=== PATIENT | male | born 1935 | race Hispanic/Latino ===

== ENCOUNTER → 2020-05-12 | Day surgery (SDC) | payer MEDICARE ==
[2020-05-10 15:43] LABS: BASOPHILS % 0.6 % (0.0-1.0); EOSINOPHILS # (AUTO) 0.1 (0.0-0.4); EOSINOPHILS % 2.4 % (0.0-6.0); HEMATOCRIT 42.6 % (38.2-49.6); HEMOGLOBIN 13.7 g/dL (14.0-18.0); LYMPHOCYTES # (AUTO) 1.1 (1.0-3.2); LYMPHOCYTES % 21.2 % (18.0-39.1); MEAN CORPUSCULAR HEMOGLOBIN 31.3 pg (28-32); MEAN CORPUSCULAR HGB CONC 32.2 g/dL (31-35); MEAN CORPUSCULAR VOLUME 97.3 fL (81-99); MONOCYTES # (AUTO) 0.5 (0.2-0.8); MONOCYTES % 9.1 % (4.4-11.3); NEUTROPHILS # (AUTO) 3.6 (2.1-6.9); NEUTROPHILS % 66.3 % (38.7-80.0); PLATELET COUNT 125 x10e3/uL (140-360); RED BLOOD COUNT 4.38 x10e6/uL (4.3-5.7); RED CELL DISTRIBUTION WIDTH 12.9 % (11.7-14.4)
[2020-05-10 15:53] LABS: ANION GAP 14.7 mmol/L (8-16); BLOOD UREA NITROGEN 14 mg/dL (7-26); BUN/CREATININE RATIO 15 (6-25); CALCIUM 8.7 mg/dL (8.4-10.2); CARBON DIOXIDE 28 mmol/L (22-29); CHLORIDE 102 mmol/L (98-107); CREATININE, SERUM 0.93 mg/dL (0.72-1.25); EST GLOMERULAR FILTRATION RATE > 60 ML/MIN (60-); GLUCOSE 127 mg/dL (74-118); POTASSIUM 3.7 mmol/L (3.5-5.1); SODIUM 141 mmol/L (136-145)
[~2020-05-12] MED LIST: AMLODIPINE BESY10 MG PO; B&O 60MG R/S 60 MG SUPP PR ONE; CEFTRIAXONE SOD 1 GM/NS 50 ML 50 ML IV ONE; CRESTOR10 MG PO; DEXAMETHASONE SOD PHOS INJ 4 MG/ML VIAL ONE; FINASTERIDE5 MG PO; IOPAMIDOL 300MG/ML 50ML INFUS..BTL IV ONE; LIDOCAINE HCL 2% JELLY 5 ML TUBE ONE; LIDOCAINE HCL 2% LOCAL INJ 5 ML SDV VIAL INJ ONE; ONDANSETRON HCL INJ 2MG/ML 2ML 2 MG/ML VIAL ONE; OXYBUTYNIN CHLOR5 M1 PO; PROPOFOL IV EMULSION 10 MG/ML 20 ML VIAL ONE; SEVOFLURANE INHAL SOLN 250 ML PEN BTL ONE; SODIUM CHLORIDE 0.45% 1,000 ML ONE
[2020-05-12 09:30] VITALS: BP 140/68
== END | disposition home or self-care (01) ==
LOC: OR 05:53
PROVIDERS: ATTEND Urology
DX: C67.2 Malignant neoplasm of lateral wall of bladder (principal); N39.0 Urinary tract infection, site not specified; N40.1 Benign prostatic hyperplasia with lower urinary tract symptoms; N13.8 Other obstructive and reflux uropathy; N32.89 Other specified disorders of bladder; N32.81 Overactive bladder; M06.9 Rheumatoid arthritis, unspecified; M19.012 Primary osteoarthritis, left shoulder; I10 Essential (primary) hypertension; E78.00 Pure hypercholesterolemia, unspecified; I49.3 Ventricular premature depolarization; I45.10 Unspecified right bundle-branch block; Z98.890 Other specified postprocedural states; Z01.810 Encounter for preprocedural cardiovascular examination; Z01.812 Encounter for preprocedural laboratory examination; Z01.818 Encounter for other preprocedural examination; Z20.822 Contact with and (suspected) exposure to COVID-19; Z87.891 Personal history of nicotine dependence
CPT/HCPCS: 36415; 52005; 52235; 71046; 74420; 80048; 85025; 88307; 93005; C1758; J0696; J1100; J2001 ×2; J2405; J2704; Q9967; U0002; 88305

== ENCOUNTER → 2020-07-21 | Day surgery (SDC) | payer MEDICARE ==
[2020-07-07 09:38] LABS: BASOPHILS % 0.6 % (0.0-1.0); EOSINOPHILS # (AUTO) 0.1 (0.0-0.4); EOSINOPHILS % 2.4 % (0.0-6.0); LYMPHOCYTES # (AUTO) 0.9 (1.0-3.2); LYMPHOCYTES % 16.8 % (18.0-39.1); MEAN CORPUSCULAR HEMOGLOBIN 31.3 pg (28-32); MEAN CORPUSCULAR HGB CONC 31.7 g/dL (31-35); MEAN CORPUSCULAR VOLUME 98.6 fL (81-99); MONOCYTES # (AUTO) 0.4 (0.2-0.8); MONOCYTES % 8.1 % (4.4-11.3); NEUTROPHILS # (AUTO) 3.9 (2.1-6.9); NEUTROPHILS % 71.7 % (38.7-80.0); PLATELET COUNT 125 x10e3/uL (140-360); RED BLOOD COUNT 4.16 x10e6/uL (4.3-5.7); RED CELL DISTRIBUTION WIDTH 13.8 % (11.7-14.4)
[2020-07-07 10:09] LABS: ALANINE AMINOTRANSFERASE 15 IU/L (0-55); ALBUMIN 3.5 g/dL (3.5-5.0); ALBUMIN/GLOBULIN RATIO 0.9 (0.8-2.0); ALKALINE PHOSPHATASE 78 IU/L (40-150); BLOOD UREA NITROGEN 11 mg/dL (7-26); BUN/CREATININE RATIO 11 (6-25); CALCIUM 8.7 mg/dL (8.4-10.2); CARBON DIOXIDE 30 mmol/L (22-29); CHLORIDE 103 mmol/L (98-107); CREATININE, SERUM 0.97 mg/dL (0.72-1.25); EST GLOMERULAR FILTRATION RATE > 60 ML/MIN (60-); GLUCOSE 99 mg/dL (74-118); SODIUM 142 mmol/L (136-145)
[~2020-07-21] MED LIST changes: +CEFTRIAXONE SOD 1 GM VIAL ONE; -CEFTRIAXONE SOD 1 GM/NS 50 ML 50 ML IV ONE; +COLACE100 MG PO; -LIDOCAINE HCL 2% JELLY 5 ML TUBE ONE; +MIRALAX17 GM PO; -SODIUM CHLORIDE 0.45% 1,000 ML ONE; +SODIUM CHLORIDE 0.9% 50ML 50 ML ONE
[2020-07-21 11:20] VITALS: BP 143/72
== END | disposition home or self-care (01) ==
LOC: OR 07:33
PROVIDERS: ATTEND Urology
DX: C67.9 Malignant neoplasm of bladder, unspecified (principal); D30.3 Benign neoplasm of bladder; N39.0 Urinary tract infection, site not specified; N32.89 Other specified disorders of bladder; N40.0 Benign prostatic hyperplasia without lower urinary tract symptoms; N13.8 Other obstructive and reflux uropathy; I10 Essential (primary) hypertension; Z01.812 Encounter for preprocedural laboratory examination; Z20.822 Contact with and (suspected) exposure to COVID-19; Z98.890 Other specified postprocedural states
CPT/HCPCS: 36415; 52005; 52234; 74420; 80053; 85025; 88305; C1758; J0696; Q9967; U0002 ×2; J1100; J2001; J2405

== ENCOUNTER 2020-11-22 08:20 | Inpatient (IN) | payer MEDICARE ==
[2020-11-17 11:08] LABS: BASOPHILS % 0.7 % (0.0-1.0); EOSINOPHILS # (AUTO) 0.1 (0.0-0.4); EOSINOPHILS % 2.4 % (0.0-6.0); HEMATOCRIT 42.7 % (38.2-49.6); HEMOGLOBIN 13.8 g/dL (14.0-18.0); LYMPHOCYTES # (AUTO) 1.1 (1.0-3.2); LYMPHOCYTES % 25.6 % (18.0-39.1); MEAN CORPUSCULAR HEMOGLOBIN 31.3 pg (28-32); MEAN CORPUSCULAR HGB CONC 32.3 g/dL (31-35); MEAN CORPUSCULAR VOLUME 96.8 fL (81-99); MONOCYTES # (AUTO) 0.4 (0.2-0.8); MONOCYTES % 9.2 % (4.4-11.3); NEUTROPHILS # (AUTO) 2.6 (2.1-6.9); NEUTROPHILS % 61.9 % (38.7-80.0); PLATELET COUNT 98 x10e3/uL (140-360); RED BLOOD COUNT 4.41 x10e6/uL (4.3-5.7)
[~2020-11-22] VITALS: Ht 170.2 cm; Wt 72.1 kg
[~2020-11-22 08:20] MED LIST changes: -B&O 60MG R/S 60 MG SUPP PR ONE; +BELLADONNA/OPIUM 30 MG SUPP RC ONE; -CEFTRIAXONE SOD 1 GM VIAL ONE; -DEXAMETHASONE SOD PHOS INJ 4 MG/ML VIAL ONE; -LIDOCAINE HCL 2% LOCAL INJ 5 ML SDV VIAL INJ ONE; -ONDANSETRON HCL INJ 2MG/ML 2ML 2 MG/ML VIAL ONE; -PROPOFOL IV EMULSION 10 MG/ML 20 ML VIAL ONE; -SEVOFLURANE INHAL SOLN 250 ML PEN BTL ONE; -SODIUM CHLORIDE 0.9% 50ML 50 ML ONE
[2020-11-22] MEDS ORDERED: SODIUM CHLORIDE 0.9% 50ML 50 ML ONE (09:23)
[2020-11-22] MEDS ORDERED: CEFTRIAXONE 1 GM VIAL ONE (09:23)
[2020-11-22] MEDS ORDERED: SODIUM CHLORIDE 0.9% 1000ML 1,000 ML ONE (09:23)
[2020-11-22] MEDS ORDERED: GENTAMICIN 80MG/NS 100 ML 200 ML IV ONE (09:23)
[2020-11-22] MEDS ORDERED: FENTANYL CITRATE/PF 100MCG/2 ML INJ ONE ×2 (12:15→13:14)
[2020-11-22] MEDS ORDERED: B&O 60MG R/S 60 MG SUPP PR PRN (12:45)
[2020-11-22] MEDS ORDERED: ONDANSETRON HCL INJ 2MG/ML 2ML 2 MG/ML VIAL IV PRN (12:45)
[2020-11-22] MEDS ORDERED: ACETAMINOPHEN/CODEINE 300MG - 30MG TAB PO PRN (12:45)
[2020-11-22] MEDS ORDERED: DIPHENHYDRAMINE HCL 25 MG CAP PO PRN (12:45)
[2020-11-22] MEDS ORDERED: MORPHINE SULFATE INJ 4 MG/ML INJ 1ML ONE (13:08)
[2020-11-22] MEDS ORDERED: POVIDONE IODINE 0.05% 0.05 % ML PO ONE (13:16)
[2020-11-22] MEDS ORDERED: LIDOCAINE HCL 2% LOCAL INJ 5 ML SDV VIAL INJ ONE (13:16)
[2020-11-22] MEDS ORDERED: ONDANSETRON HCL INJ 2MG/ML 2ML 2 MG/ML VIAL ONE (13:16)
[2020-11-22] MEDS ORDERED: DEXAMETHASONE SOD PHOS INJ 4 MG/ML VIAL ONE (13:16)
[2020-11-22] MEDS ORDERED: PROPOFOL IV EMULSION 10 MG/ML 20 ML VIAL ONE (13:16)
[2020-11-22] MEDS ORDERED: GLYCOPYRROLATE INJ 0.2 MG/ML VIAL ONE (13:16)
[2020-11-22 13:19] LABS: BASOPHILS % 0.5 % (0.0-1.0); EOSINOPHILS # (AUTO) 0.1 (0.0-0.4); EOSINOPHILS % 1.8 % (0.0-6.0); HEMATOCRIT 45.1 % (38.2-49.6); HEMOGLOBIN 14.3 g/dL (14.0-18.0); LYMPHOCYTES # (AUTO) 1.3 (1.0-3.2); LYMPHOCYTES % 28.4 % (18.0-39.1); MEAN CORPUSCULAR HEMOGLOBIN 31.6 pg (28-32); MEAN CORPUSCULAR HGB CONC 31.7 g/dL (31-35); MEAN CORPUSCULAR VOLUME 99.6 fL (81-99); MONOCYTES # (AUTO) 0.3 (0.2-0.8); MONOCYTES % 6.3 % (4.4-11.3); NEUTROPHILS # (AUTO) 2.8 (2.1-6.9); NEUTROPHILS % 62.3 % (38.7-80.0); PLATELET COUNT 79 x10e3/uL (140-360); RED BLOOD COUNT 4.53 x10e6/uL (4.3-5.7); RED CELL DISTRIBUTION WIDTH 13.8 % (11.7-14.4)
[2020-11-22 13:38] LABS: ANION GAP 12.9 mmol/L (8-16); CALCIUM 8.2 mg/dL (8.4-10.2); CREATININE, SERUM 0.84 mg/dL (0.72-1.25); POTASSIUM 3.9 mmol/L (3.5-5.1)
[2020-11-22 14:30] VITALS: BP 145/81
[2020-11-22 16:10] VITALS: BP 142/70
[2020-11-22] MEDS: D5.45%NS/KCL 20MEQ 1,000 ML IV SCH ×2 (16:23→22:43)
[2020-11-22] MEDS: DOCUSATE SODIUM 100 MG CAP PO SCH (16:40)
[2020-11-22 20:00] VITALS: BP 117/66
[2020-11-23] VITALS (8 sets, daily range): BP systolic 102–115; BP diastolic 55–66
[2020-11-23 05:04] LABS: BASOPHILS % 0.3 % (0.0-1.0); EOSINOPHILS % 0.3 % (0.0-6.0); HEMATOCRIT 40.8 % (38.2-49.6); HEMOGLOBIN 13.4 g/dL (14.0-18.0); LYMPHOCYTES # (AUTO) 0.9 (1.0-3.2); LYMPHOCYTES % 12.4 % (18.0-39.1); MEAN CORPUSCULAR HGB CONC 32.8 g/dL (31-35); MEAN CORPUSCULAR VOLUME 97.4 fL (81-99); MONOCYTES # (AUTO) 0.8 (0.2-0.8); MONOCYTES % 10.6 % (4.4-11.3); NEUTROPHILS # (AUTO) 5.4 (2.1-6.9); PLATELET COUNT 96 x10e3/uL (140-360); RED BLOOD COUNT 4.19 x10e6/uL (4.3-5.7); RED CELL DISTRIBUTION WIDTH 13.9 % (11.7-14.4)
[2020-11-23 05:22] LABS: ANION GAP 10.4 mmol/L (8-16); CALCIUM 7.8 mg/dL (8.4-10.2); CREATININE, SERUM 0.83 mg/dL (0.72-1.25); POTASSIUM 4.4 mmol/L (3.5-5.1)
[2020-11-23] MEDS: CEFTRIAXONE 1 GM in SODIUM CHLORIDE 0.9% 50ML 50 ML IV SCH (09:51)
[2020-11-23] MEDS: AMLODIPINE BESYLATE 10 MG TAB PO SCH (09:51)
[2020-11-23] MEDS: DOCUSATE SODIUM 100 MG CAP PO SCH ×2 (09:51→16:57)
[2020-11-23] MEDS: SIMVASTATIN 20 MG TAB PO SCH (09:53)
[2020-11-23] MEDS: FINASTERIDE 5 MG TAB PO SCH (09:53)
[2020-11-23] MEDS: D5.45%NS/KCL 20MEQ 1,000 ML IV SCH (16:23)
[2020-11-23] MEDS: PHENAZOPYRIDINE HCL 100 MG TAB PO PRN (20:45)
[2020-11-24] VITALS: BP 128/56
[2020-11-24] MEDS: D5.45%NS/KCL 20MEQ 1,000 ML IV SCH (02:15)
[2020-11-24 04:00] VITALS: BP 116/61
[2020-11-24 05:56] LABS: BASOPHILS % 0.3 % (0.0-1.0); EOSINOPHILS # (AUTO) 0.1 (0.0-0.4); EOSINOPHILS % 1.4 % (0.0-6.0); HEMATOCRIT 40.3 % (38.2-49.6); HEMOGLOBIN 13.1 g/dL (14.0-18.0); LYMPHOCYTES # (AUTO) 0.9 (1.0-3.2); LYMPHOCYTES % 15.7 % (18.0-39.1); MEAN CORPUSCULAR HEMOGLOBIN 31.6 pg (28-32); MEAN CORPUSCULAR HGB CONC 32.5 g/dL (31-35); MEAN CORPUSCULAR VOLUME 97.3 fL (81-99); MONOCYTES # (AUTO) 0.6 (0.2-0.8); MONOCYTES % 10.6 % (4.4-11.3); NEUTROPHILS # (AUTO) 4.1 (2.1-6.9); NEUTROPHILS % 71.5 % (38.7-80.0); PLATELET COUNT 81 x10e3/uL (140-360); RED BLOOD COUNT 4.14 x10e6/uL (4.3-5.7); RED CELL DISTRIBUTION WIDTH 14.1 % (11.7-14.4)
[2020-11-24 06:37] LABS: ANION GAP 9.1 mmol/L (8-16); CREATININE, SERUM 0.79 mg/dL (0.72-1.25); POTASSIUM 4.1 mmol/L (3.5-5.1)
[2020-11-24] MEDS: PHENAZOPYRIDINE HCL 100 MG TAB PO PRN (07:44)
[2020-11-24 08:05] VITALS: BP 104/59
[2020-11-24 08:34] VITALS: BP 104/59
[2020-11-24] MEDS: AMLODIPINE BESYLATE 10 MG TAB PO SCH (09:00)
[2020-11-24] MEDS: CEFTRIAXONE 1 GM in SODIUM CHLORIDE 0.9% 50ML 50 ML IV SCH (09:19)
[2020-11-24] MEDS: DOCUSATE SODIUM 100 MG CAP PO SCH (09:19)
[2020-11-24] MEDS: FINASTERIDE 5 MG TAB PO SCH (09:20)
[2020-11-24] MEDS: SIMVASTATIN 20 MG TAB PO SCH (09:20)
[2020-11-24 11:28] VITALS: BP 106/58
[2020-11-24] MEDS ORDERED: LEVOFLOXACIN250 MG PO (14:50)
[2020-11-24 15:29] VITALS: BP 131/64
[2020-11-24] MEDS ORDERED: ONDANSETRON HCL 4 MG ORAL DISINTEGRATING TAB PO PRN (15:30)
== END 2020-11-24 15:55 | disposition home or self-care (01) | DRG 713 ==
LOC: OR 08:20 → PACU V 12:39 → MED/SURG 14:03
PROVIDERS: ADMIT Internal Medicine; ATTEND Internal Medicine
PROC: BT141ZZ Fluoroscopy of Kidneys, Ureters and Bladder using Low Osmolar Contrast (ICD-10-PCS; 2020-11-22)
PROC: 0T788ZZ Dilation of Bilateral Ureters, Via Natural or Artificial Opening Endoscopic (ICD-10-PCS; principal; 2020-11-22 10:00)
PROC: 0VB08ZZ Excision of Prostate, Via Natural or Artificial Opening Endoscopic (ICD-10-PCS; 2020-11-22 10:00)
DX: N40.1 Benign prostatic hyperplasia with lower urinary tract symptoms (principal); N13.8 Other obstructive and reflux uropathy; D69.6 Thrombocytopenia, unspecified; E78.5 Hyperlipidemia, unspecified; Z85.51 Personal history of malignant neoplasm of bladder; N32.81 Overactive bladder; K59.00 Constipation, unspecified; Z87.891 Personal history of nicotine dependence; E78.00 Pure hypercholesterolemia, unspecified
CPT/HCPCS: 36415; 74420; 80048; 83735; 85025; 93005; C1758; J0696; J1100; J1580; J2001; J2270; J2405; J3010; J7030; U0002

== ENCOUNTER → 2021-10-23 | Outpatient (CLI) | payer MEDICARE ==
[~2021-10-23] MED LIST changes: -BELLADONNA/OPIUM 30 MG SUPP RC ONE; -IOPAMIDOL 300MG/ML 50ML INFUS..BTL IV ONE; +LEVOFLOXACIN250 MG PO
== END ==
LOC: DX 09:29
PROVIDERS: ATTEND Surgery
DX: Z93.3 Colostomy status (principal)
CPT/HCPCS: 74280

== ENCOUNTER → 2021-11-16 | Outpatient (CLI) | payer MEDICARE ==
[~2021-11-16] MED LIST changes: +DIATRIZOATE MEGL/DIATRIZOA SOD 30 ML BTL PO ONE; +IOPAMIDOL 370 MG/ML 100 ML INFUS..BTL INJ ONE
[2021-11-16 14:33] LABS: CREATININE, SERUM 1.14 mg/dL (0.72-1.25)
== END ==
LOC: CT 13:40
PROVIDERS: ATTEND Surgery
DX: Z85.038 Personal history of other malignant neoplasm of large intestine (principal); N32.9 Bladder disorder, unspecified; N40.0 Benign prostatic hyperplasia without lower urinary tract symptoms
CPT/HCPCS: 36415; 74177; 82565; 84520; Q9963; Q9967

== ENCOUNTER → 2022-02-01 | Day surgery (SDC) | payer MEDICARE ==
[2022-01-30 14:24] LABS: BASOPHILS % 0.5 % (0.0-1.0); EOSINOPHILS # (AUTO) 0.1 (0.0-0.4); EOSINOPHILS % 2.5 % (0.0-6.0); HEMATOCRIT 41.4 % (38.2-49.6); HEMOGLOBIN 13.3 g/dL (14.0-18.0); LYMPHOCYTES # (AUTO) 0.9 (1.0-3.2); LYMPHOCYTES % 22.4 % (18.0-39.1); MEAN CORPUSCULAR HEMOGLOBIN 32.7 pg (28-32); MEAN CORPUSCULAR HGB CONC 32.1 g/dL (31-35); MEAN CORPUSCULAR VOLUME 101.7 fL (81-99); MONOCYTES # (AUTO) 0.4 (0.2-0.8); MONOCYTES % 9.5 % (4.4-11.3); NEUTROPHILS # (AUTO) 2.6 (2.1-6.9); NEUTROPHILS % 64.9 % (38.7-80.0); PLATELET COUNT 87 x10e3/uL (140-360); RED BLOOD COUNT 4.07 x10e6/uL (4.3-5.7); RED CELL DISTRIBUTION WIDTH 12.7 % (11.7-14.4)
[2022-01-30 14:44] LABS: ALBUMIN 4.1 g/dL (3.5-5.0); ALBUMIN/GLOBULIN RATIO 1.2 (0.8-2.0); ANION GAP 11.9 mmol/L (8-16); CREATININE, SERUM 0.91 mg/dL (0.72-1.25); POTASSIUM 3.9 mmol/L (3.5-5.1)
[~2022-02-01] MED LIST changes: +BELLADONNA/OPIUM 30 MG SUPP RC ONE; +CEFTRIAXONE 1 GM VIAL ONE; +DEXAMETHASONE SOD PHOS INJ 4 MG/ML SDV IV ONE; -DIATRIZOATE MEGL/DIATRIZOA SOD 30 ML BTL PO ONE; +EPHEDRINE SULFATE INJ 50 MG/ML VIAL IV ONE; -IOPAMIDOL 370 MG/ML 100 ML INFUS..BTL INJ ONE; +IOPAMIDOL 610MG/1ML 300 MG/ML VIAL IV ONE; +LIDOCAINE HCL 2% LOCAL INJ 5 ML SDV VIAL INJ ONE; +METOPROLOL SUCC25 MG PO; +MIDAZOLAM HCL 2 MG/2 ML VIAL ONE; +ONDANSETRON HCL INJ 2MG/ML 2ML 2 MG/ML VIAL IV ONE; +POVIDONE IODINE 0.05% 0.05 % ML PO ONE; +PROPOFOL IV EMULSION 10 MG/ML 20 ML VIAL IV ONE; +SODIUM CHLORIDE 0.9% 1000ML 1,000 ML ONE
[2022-02-01 14:00] VITALS: BP 120/75
== END | disposition home or self-care (01) ==
LOC: OR 09:06
PROVIDERS: ATTEND Urology
DX: C67.1 Malignant neoplasm of dome of bladder (principal); N39.0 Urinary tract infection, site not specified; N35.912 Unspecified bulbous urethral stricture, male; N40.0 Benign prostatic hyperplasia without lower urinary tract symptoms; C18.9 Malignant neoplasm of colon, unspecified; I11.0 Hypertensive heart disease with heart failure; I50.30 Unspecified diastolic (congestive) heart failure; I45.10 Unspecified right bundle-branch block; E78.5 Hyperlipidemia, unspecified; R00.1 Bradycardia, unspecified; Z01.810 Encounter for preprocedural cardiovascular examination; Z01.812 Encounter for preprocedural laboratory examination; Z01.818 Encounter for other preprocedural examination; Z79.899 Other long term (current) drug therapy; Z87.891 Personal history of nicotine dependence
CPT/HCPCS: 36415; 52005; 52235; 71046; 74420; 80053; 85025; 88307; 93005; C1758; J0696; J1100; J2001; J2250; J2405; J2704; J7030; Q9967; 88304

== ENCOUNTER → 2022-04-19 | Day surgery (SDC) | payer MEDICARE ==
[2022-04-17 13:18] LABS: BASOPHILS % 0.8 % (0.0-1.0); EOSINOPHILS # (AUTO) 0.1 (0.0-0.4); EOSINOPHILS % 2.7 % (0.0-6.0); HEMATOCRIT 44.7 % (38.2-49.6); HEMOGLOBIN 13.9 g/dL (14.0-18.0); LYMPHOCYTES % 25.7 % (18.0-39.1); MEAN CORPUSCULAR HEMOGLOBIN 32.3 pg (28-32); MEAN CORPUSCULAR HGB CONC 31.1 g/dL (31-35); MONOCYTES # (AUTO) 0.4 (0.2-0.8); MONOCYTES % 10.6 % (4.4-11.3); NEUTROPHILS # (AUTO) 2.3 (2.1-6.9); NEUTROPHILS % 59.9 % (38.7-80.0); PLATELET COUNT 95 x10e3/uL (140-360); RED CELL DISTRIBUTION WIDTH 12.8 % (11.7-14.4)
[2022-04-17 13:36] LABS: ALBUMIN 4.3 g/dL (3.5-5.0); ALBUMIN/GLOBULIN RATIO 1.2 (0.8-2.0); ANION GAP 14.6 mmol/L (8-16); CALCIUM 9.2 mg/dL (8.4-10.2); CREATININE, SERUM 1.01 mg/dL (0.72-1.25); POTASSIUM 4.6 mmol/L (3.5-5.1)
[~2022-04-19] MED LIST changes: -BELLADONNA/OPIUM 30 MG SUPP RC ONE; -DEXAMETHASONE SOD PHOS INJ 4 MG/ML SDV IV ONE; -EPHEDRINE SULFATE INJ 50 MG/ML VIAL IV ONE; +FENTANYL CITRATE/PF 100MCG/2 ML INJ ONE; +IOPAMIDOL 300MG/ML 50ML INFUS..BTL IV ONE; -IOPAMIDOL 610MG/1ML 300 MG/ML VIAL IV ONE; +MULTI-VITAMIN1 EAC1 PO; -ONDANSETRON HCL INJ 2MG/ML 2ML 2 MG/ML VIAL IV ONE; +PHENYLEPHRINE HCL 1% 10 MG/ML VIAL ONE; -PROPOFOL IV EMULSION 10 MG/ML 20 ML VIAL IV ONE; +PROPOFOL IV EMULSION 10 MG/ML 20 ML VIAL ONE; +SEVOFLURANE INHAL SOLN 250 ML PEN BTL ONE; +SODIUM CHLORIDE 0.9% 100 ML ONE; -SODIUM CHLORIDE 0.9% 1000ML 1,000 ML ONE
[2022-04-19 11:30] VITALS: BP 123/60
== END | disposition home or self-care (01) ==
LOC: OR 06:46
PROVIDERS: ATTEND Urology
DX: C67.9 Malignant neoplasm of bladder, unspecified (principal); N35.912 Unspecified bulbous urethral stricture, male; I10 Essential (primary) hypertension; I42.1 Obstructive hypertrophic cardiomyopathy; E78.5 Hyperlipidemia, unspecified; I45.10 Unspecified right bundle-branch block; Z01.812 Encounter for preprocedural laboratory examination; Z79.899 Other long term (current) drug therapy; Z85.038 Personal history of other malignant neoplasm of large intestine; Z98.890 Other specified postprocedural states
CPT/HCPCS: 36415; 52214; 74420; 80053; 85025; 88305; C1758; J0696; J2001; J2250; J2370; J2704; J3010; J7050; Q9967; 88304

== ENCOUNTER 2023-02-24 09:43 | Inpatient (IN) | payer MEDICARE ==
[~2023-02-24 09:43] MED LIST changes: -CEFTRIAXONE 1 GM VIAL ONE; -FENTANYL CITRATE/PF 100MCG/2 ML INJ ONE; -IOPAMIDOL 300MG/ML 50ML INFUS..BTL IV ONE; -LIDOCAINE HCL 2% LOCAL INJ 5 ML SDV VIAL INJ ONE; -MIDAZOLAM HCL 2 MG/2 ML VIAL ONE; +OXYBUTYNIN CHLOR5 MG PO; -PHENYLEPHRINE HCL 1% 10 MG/ML VIAL ONE; -POVIDONE IODINE 0.05% 0.05 % ML PO ONE; -PROPOFOL IV EMULSION 10 MG/ML 20 ML VIAL ONE; -SEVOFLURANE INHAL SOLN 250 ML PEN BTL ONE; -SODIUM CHLORIDE 0.9% 100 ML ONE
[2023-02-24] MEDS ORDERED: GENTAMICIN 80MG/NS 100 ML 200 ML IV ONE (10:35)
[2023-02-24] MEDS ORDERED: CEFTRIAXONE 1 GM VIAL ONE (10:35)
[2023-02-24] MEDS ORDERED: SODIUM CHLORIDE 0.9% 1000ML 1,000 ML ONE (10:36)
[2023-02-24 10:56] LABS: BASOPHILS % 0.5 % (0.0-1.0); EOSINOPHILS % 0.8 % (0.0-6.0); HEMATOCRIT 41.3 % (38.2-49.6); HEMOGLOBIN 13.8 g/dL (14.0-18.0); LYMPHOCYTES # (AUTO) 0.8 (1.0-3.2); LYMPHOCYTES % 20.4 % (18.0-39.1); MEAN CORPUSCULAR HEMOGLOBIN 32.7 pg (28-32); MEAN CORPUSCULAR HGB CONC 33.4 g/dL (31-35); MEAN CORPUSCULAR VOLUME 97.9 fL (81-99); MONOCYTES # (AUTO) 0.4 (0.2-0.8); MONOCYTES % 9.9 % (4.4-11.3); NEUTROPHILS # (AUTO) 2.6 (2.1-6.9); NEUTROPHILS % 68.1 % (38.7-80.0); RED BLOOD COUNT 4.22 x10e6/uL (4.3-5.7); RED CELL DISTRIBUTION WIDTH 13.1 % (11.7-14.4); WHITE BLOOD COUNT 3.83 x10e3/uL (4.8-10.8)
[2023-02-24 11:15] LABS: ALBUMIN 4.2 g/dL (3.5-5.0); ALBUMIN/GLOBULIN RATIO 1.4 (0.8-2.0); ANION GAP 12.8 mmol/L (8-16); BILIRUBIN,TOTAL 0.7 mg/dL (0.2-1.2); CALCIUM 9.1 mg/dL (8.4-10.2); CREATININE, SERUM 0.88 mg/dL (0.72-1.25); POTASSIUM 3.8 mmol/L (3.5-5.1); TOTAL PROTEIN 7.3 g/dL (6.5-8.1)
[2023-02-24 11:21] LABS: PLATELET COUNT 88 x10e3/uL (140-360)
[2023-02-24] MEDS ORDERED: IOPAMIDOL 610MG/1ML 300 MG/ML VIAL IV ONE (12:21)
[2023-02-24] MEDS ORDERED: FENTANYL CITRATE/PF 100MCG/2 ML INJ ONE (12:34)
[2023-02-24] MEDS ORDERED: ONDANSETRON HCL INJ 2MG/ML 2ML 2 MG/ML VIAL ONE (12:47)
[2023-02-24] MEDS ORDERED: PHENYLEPHRINE HCL 1% 10 MG/ML VIAL ONE (12:47)
[2023-02-24] MEDS ORDERED: PROPOFOL IV EMULSION 10 MG/ML 20 ML VIAL ONE (12:47)
[2023-02-24] MEDS ORDERED: SEVOFLURANE INHAL SOLN 250 ML PEN BTL ONE (12:47)
[2023-02-24] MEDS ORDERED: EPHEDRINE SULFATE INJ 50 MG/ML VIAL ONE (12:47)
[2023-02-24] MEDS ORDERED: DEXAMETHASONE SOD PHOS INJ 4 MG/ML SDV ONE (12:47)
[2023-02-24] MEDS ORDERED: LIDOCAINE HCL 2% LOCAL INJ 5 ML SDV VIAL INJ ONE (12:47)
[2023-02-24] MEDS ORDERED: ONDANSETRON HCL INJ 2MG/ML 2ML 2 MG/ML VIAL IV PRN (15:30)
[2023-02-24] MEDS ORDERED: ACETAMINOPHEN 1000 MG/100 ML IV PRN (15:30)
[2023-02-24] MEDS ORDERED: DIPHENHYDRAMINE HCL 25 MG CAP PO PRN (15:30)
[2023-02-24] MEDS ORDERED: PHENAZOPYRIDINE HCL 100 MG TAB PO PRN (15:30)
[2023-02-24 16:25] LABS: ANION GAP 13.5 mmol/L (8-16); CALCIUM 7.8 mg/dL (8.4-10.2); CREATININE, SERUM 0.77 mg/dL (0.72-1.25); POTASSIUM 4.5 mmol/L (3.5-5.1)
[2023-02-24 20:00] VITALS: BP 114/53; PULSE 68; RESP 18; TEMP 97.8; O2SAT 100
[2023-02-24 20:50] VITALS: PULSE 63; RESP 18; O2SAT 100
[2023-02-24 21:00] VITALS: BP 114/53; PULSE 68; RESP 18; TEMP 97.8; O2SAT 100
[2023-02-24] MEDS: SENNA-S TABLET PO SCH (21:45)
[2023-02-24] MEDS: SODIUM CHLORIDE 0.9% 1000ML 1,000 ML IV SCH (21:46)
[2023-02-24] MEDS: ACETAMINOPHEN/CODEINE 300MG - 30MG TAB PO PRN (21:51)
[2023-02-25] VITALS (9 sets, daily range): BP systolic 90–118; BP diastolic 48–62; PULSE 59–69; RESP 16–19; TEMP 97.7–98.8; O2SAT 95–100
[2023-02-25 05:03] LABS: BASOPHILS % 0.2 % (0.0-1.0); HEMATOCRIT 35.3 % (38.2-49.6); HEMOGLOBIN 11.6 g/dL (14.0-18.0); LYMPHOCYTES # (AUTO) 0.4 (1.0-3.2); LYMPHOCYTES % 5.8 % (18.0-39.1); MEAN CORPUSCULAR HEMOGLOBIN 32.6 pg (28-32); MEAN CORPUSCULAR HGB CONC 32.9 g/dL (31-35); MEAN CORPUSCULAR VOLUME 99.2 fL (81-99); MONOCYTES # (AUTO) 0.5 (0.2-0.8); MONOCYTES % 6.8 % (4.4-11.3); NEUTROPHILS # (AUTO) 5.7 (2.1-6.9); RED BLOOD COUNT 3.56 x10e6/uL (4.3-5.7); RED CELL DISTRIBUTION WIDTH 12.9 % (11.7-14.4)
[2023-02-25 05:04] LABS: PLATELET COUNT 76 x10e3/uL (140-360)
[2023-02-25 05:05] LABS: WHITE BLOOD COUNT 6.57 x10e3/uL (4.8-10.8)
[2023-02-25 05:22] LABS: ANION GAP 12.2 mmol/L (8-16); CALCIUM 7.8 mg/dL (8.4-10.2); CREATININE, SERUM 0.84 mg/dL (0.72-1.25); POTASSIUM 4.2 mmol/L (3.5-5.1)
[2023-02-25] MEDS: ACETAMINOPHEN/CODEINE 300MG - 30MG TAB PO PRN (05:42)
[2023-02-25] MEDS: SODIUM CHLORIDE 0.9% 1000ML 1,000 ML IV SCH ×2 (05:45→17:13)
[2023-02-25] MEDS: SENNA-S TABLET PO SCH ×2 (09:58→17:13)
[2023-02-25] MEDS ORDERED: ONDANSETRON HCL 4 MG ORAL DISINTEGRATING TAB PO PRN (11:15)
[2023-02-26] VITALS (8 sets, daily range): BP systolic 107–130; BP diastolic 53–61; PULSE 60–70; RESP 16–20; TEMP 97.5–98; O2SAT 97–100
[2023-02-26 06:03] LABS: BASOPHILS % 0.5 % (0.0-1.0); EOSINOPHILS # (AUTO) 0.1 (0.0-0.4); EOSINOPHILS % 1.5 % (0.0-6.0); HEMATOCRIT 32.2 % (38.2-49.6); HEMOGLOBIN 10.6 g/dL (14.0-18.0); LYMPHOCYTES # (AUTO) 0.8 (1.0-3.2); LYMPHOCYTES % 12.9 % (18.0-39.1); MEAN CORPUSCULAR HEMOGLOBIN 32.7 pg (28-32); MEAN CORPUSCULAR HGB CONC 32.9 g/dL (31-35); MEAN CORPUSCULAR VOLUME 99.4 fL (81-99); MONOCYTES # (AUTO) 0.6 (0.2-0.8); MONOCYTES % 9.5 % (4.4-11.3); NEUTROPHILS # (AUTO) 4.4 (2.1-6.9); NEUTROPHILS % 75.4 % (38.7-80.0); PLATELET COUNT 69 x10e3/uL (140-360); RED BLOOD COUNT 3.24 x10e6/uL (4.3-5.7); RED CELL DISTRIBUTION WIDTH 13.2 % (11.7-14.4); WHITE BLOOD COUNT 5.82 x10e3/uL (4.8-10.8)
[2023-02-26 06:21] LABS: ANION GAP 10.1 mmol/L (8-16); CALCIUM 7.7 mg/dL (8.4-10.2); CREATININE, SERUM 0.8 mg/dL (0.72-1.25); POTASSIUM 4.1 mmol/L (3.5-5.1)
[2023-02-26] MEDS: SENNA-S TABLET PO SCH ×2 (08:26→18:05)
[2023-02-26] MEDS: SODIUM CHLORIDE 0.9% 1000ML 1,000 ML IV SCH ×2 (08:27→22:01)
[2023-02-27] VITALS (8 sets, daily range): BP systolic 104–132; BP diastolic 54–66; PULSE 50–90; RESP 16–18; TEMP 97.6–99.1; O2SAT 98–100
[2023-02-27 06:13] LABS: BASOPHILS % 0.4 % (0.0-1.0); EOSINOPHILS # (AUTO) 0.1 (0.0-0.4); EOSINOPHILS % 1.9 % (0.0-6.0); HEMATOCRIT 31.6 % (38.2-49.6); HEMOGLOBIN 10.5 g/dL (14.0-18.0); LYMPHOCYTES # (AUTO) 0.8 (1.0-3.2); LYMPHOCYTES % 15.5 % (18.0-39.1); MEAN CORPUSCULAR HEMOGLOBIN 32.5 pg (28-32); MEAN CORPUSCULAR HGB CONC 33.2 g/dL (31-35); MEAN CORPUSCULAR VOLUME 97.8 fL (81-99); MONOCYTES # (AUTO) 0.5 (0.2-0.8); MONOCYTES % 10.5 % (4.4-11.3); NEUTROPHILS # (AUTO) 3.7 (2.1-6.9); NEUTROPHILS % 71.3 % (38.7-80.0); PLATELET COUNT 71 x10e3/uL (140-360); RED BLOOD COUNT 3.23 x10e6/uL (4.3-5.7); RED CELL DISTRIBUTION WIDTH 13.2 % (11.7-14.4); WHITE BLOOD COUNT 5.16 x10e3/uL (4.8-10.8)
[2023-02-27 06:34] LABS: ANION GAP 8.6 mmol/L (8-16); CALCIUM 7.9 mg/dL (8.4-10.2); CREATININE, SERUM 0.75 mg/dL (0.72-1.25); POTASSIUM 3.6 mmol/L (3.5-5.1)
[2023-02-27] MEDS: SENNA-S TABLET PO SCH ×2 (08:19→16:39)
[2023-02-27] MEDS: SODIUM CHLORIDE 0.9% 1000ML 1,000 ML IV SCH (16:40)
[2023-02-28] VITALS: BP 108/57; PULSE 70; RESP 18; TEMP 97.1; O2SAT 99
[2023-02-28 04:00] VITALS: BP 107/63; PULSE 62; RESP 18; TEMP 97.1; O2SAT 98
[2023-02-28] MEDS: SODIUM CHLORIDE 0.9% 1000ML 1,000 ML IV SCH ×2 (05:50→15:20)
[2023-02-28 05:53] LABS: BASOPHILS % 0.6 % (0.0-1.0); EOSINOPHILS # (AUTO) 0.1 (0.0-0.4); EOSINOPHILS % 2.3 % (0.0-6.0); HEMATOCRIT 32.2 % (38.2-49.6); HEMOGLOBIN 10.8 g/dL (14.0-18.0); LYMPHOCYTES # (AUTO) 0.5 (1.0-3.2); LYMPHOCYTES % 13.8 % (18.0-39.1); MEAN CORPUSCULAR HEMOGLOBIN 32.8 pg (28-32); MEAN CORPUSCULAR HGB CONC 33.5 g/dL (31-35); MEAN CORPUSCULAR VOLUME 97.9 fL (81-99); MONOCYTES # (AUTO) 0.4 (0.2-0.8); MONOCYTES % 11.2 % (4.4-11.3); NEUTROPHILS # (AUTO) 2.5 (2.1-6.9); NEUTROPHILS % 71.8 % (38.7-80.0); PLATELET COUNT 66 x10e3/uL (140-360); RED BLOOD COUNT 3.29 x10e6/uL (4.3-5.7); RED CELL DISTRIBUTION WIDTH 13.2 % (11.7-14.4); WHITE BLOOD COUNT 3.47 x10e3/uL (4.8-10.8)
[2023-02-28 06:22] LABS: ANION GAP 9.8 mmol/L (8-16); CREATININE, SERUM 0.85 mg/dL (0.72-1.25); POTASSIUM 3.8 mmol/L (3.5-5.1)
[2023-02-28] MEDS: SENNA-S TABLET PO SCH (07:54)
[2023-02-28 07:58] VITALS: BP 118/57; PULSE 61; RESP 18; TEMP 98; O2SAT 98
[2023-02-28 08:49] VITALS: BP 118/57; PULSE 61; RESP 18; TEMP 98; O2SAT 98
[2023-02-28 11:45] VITALS: BP 129/64; PULSE 61; RESP 16; TEMP 98; O2SAT 100
[2023-02-28 15:35] VITALS: BP 125/57; PULSE 64; RESP 20; TEMP 98.1; O2SAT 100
== END 2023-02-28 17:45 | disposition home or self-care (01) | DRG 654 ==
LOC: OR 09:43 → PACU V 14:40 → MED/SURG2 18:21
PROVIDERS: ADMIT Internal Medicine; ATTEND Internal Medicine
PROC: 0T7D8ZZ Dilation of Urethra, Via Natural or Artificial Opening Endoscopic (ICD-10-PCS; 2023-02-24)
PROC: BT141ZZ Fluoroscopy of Kidneys, Ureters and Bladder using Low Osmolar Contrast (ICD-10-PCS; 2023-02-24)
PROC: 0TTB4ZZ Resection of Bladder, Percutaneous Endoscopic Approach (ICD-10-PCS; principal; 2023-02-24 13:59)
PROC: 0VT08ZZ Resection of Prostate, Via Natural or Artificial Opening Endoscopic (ICD-10-PCS; 2023-02-24 13:59)
DX: C67.5 Malignant neoplasm of bladder neck (principal); D62 Acute posthemorrhagic anemia; I42.1 Obstructive hypertrophic cardiomyopathy; N13.8 Other obstructive and reflux uropathy; D69.6 Thrombocytopenia, unspecified; C61 Malignant neoplasm of prostate; N40.1 Benign prostatic hyperplasia with lower urinary tract symptoms; N41.9 Inflammatory disease of prostate, unspecified; I10 Essential (primary) hypertension; E78.5 Hyperlipidemia, unspecified; R31.0 Gross hematuria; R31.29 Other microscopic hematuria; N35.919 Unspecified urethral stricture, male, unspecified site; R39.14 Feeling of incomplete bladder emptying; N32.81 Overactive bladder; N39.41 Urge incontinence; N18.9 Chronic kidney disease, unspecified; R30.0 Dysuria; N52.9 Male erectile dysfunction, unspecified; E66.9 Obesity, unspecified; Z85.51 Personal history of malignant neoplasm of bladder; Z87.891 Personal history of nicotine dependence; Z79.899 Other long term (current) drug therapy
CPT/HCPCS: 36415; 71046; 74420; 80048; 80053; 83735; 85025; 88304; 88305; 88342; 94799; C1758; J0696; J1100; J1580; J2001; J2371; J2405; J7030

== ENCOUNTER 2024-02-04 07:03 | Inpatient (IN) | payer MEDICARE ==
[~2024-02-04] VITALS: Ht 170.2 cm; Wt 72.1 kg
[2024-02-04] VITALS (10 sets, daily range): BP systolic 127–145; BP diastolic 60–79; PULSE 47–71; RESP 16–17; TEMP 97.6–97.8; O2SAT 97–100
[2024-02-04 07:25] LABS: BASOPHILS % 0.6 % (0.0-1.0); EOSINOPHILS # (AUTO) 0.1 (0.0-0.4); HEMATOCRIT 39.9 % (38.2-49.6); LYMPHOCYTES # (AUTO) 0.9 (1.0-3.2); LYMPHOCYTES % 24.4 % (18.0-39.1); MEAN CORPUSCULAR HEMOGLOBIN 33.7 pg (28-32); MEAN CORPUSCULAR HGB CONC 32.6 g/dL (31-35); MEAN CORPUSCULAR VOLUME 103.4 fL (81-99); MONOCYTES # (AUTO) 0.4 (0.2-0.8); MONOCYTES % 10.7 % (4.4-11.3); NEUTROPHILS # (AUTO) 2.2 (2.1-6.9); PLATELET COUNT 90 x10e3/uL (140-360); RED BLOOD COUNT 3.86 x10e6/uL (4.3-5.7); RED CELL DISTRIBUTION WIDTH 13.2 % (11.7-14.4); WHITE BLOOD COUNT 3.56 x10e3/uL (4.8-10.8)
[2024-02-04] MEDS: MEROPENEM 1 GM in SODIUM CHLORIDE 0.9% 100 ML IV SCH (07:37)
[2024-02-04 07:57] LABS: BILIRUBIN,URINE NEGATIVE (NEGATIVE); CLARITY,URINE SL CLOUDY (CLEAR); COLOR,URINE YELLOW (YELLOW); GLUCOSE, URINE NEGATIVE (NEGATIVE); KETONES,URINE NEGATIVE (NEGATIVE); LEUKOCYTE ESTERASE ,URINE SMALL (NEGATIVE); NITRITE,URINE NEGATIVE (NEGATIVE); PH,URINE 5.5 (5 - 7); PROTEIN,URINE DIPSTICK NEGATIVE (NEGATIVE); URINE UROBILINOGEN 0.2 mg/dL (0.2 - 1)
[2024-02-04 08:04] LABS: ALBUMIN/GLOBULIN RATIO 1.2 (0.8-2.0); ANION GAP 14.7 mmol/L (8-16); BILIRUBIN,TOTAL 0.7 mg/dL (0.2-1.2); CALCIUM 9.4 mg/dL (8.4-10.2); CREATININE, SERUM 0.98 mg/dL (0.72-1.25); POTASSIUM 3.7 mmol/L (3.5-5.1); TOTAL PROTEIN 7.4 g/dL (6.5-8.1)
[2024-02-04] MEDS ORDERED: OXYBUTYNIN CHLO15 MG PO (09:44)
[2024-02-05] VITALS (9 sets, daily range): BP systolic 110–134; BP diastolic 62–79; PULSE 53–66; RESP 16–18; TEMP 97.5–98.4; O2SAT 95–100
[2024-02-05 06:06] LABS: BASOPHILS % 0.7 % (0.0-1.0); EOSINOPHILS # (AUTO) 0.1 (0.0-0.4); EOSINOPHILS % 2.1 % (0.0-6.0); HEMATOCRIT 40.1 % (38.2-49.6); LYMPHOCYTES # (AUTO) 0.9 (1.0-3.2); LYMPHOCYTES % 20.2 % (18.0-39.1); MEAN CORPUSCULAR HEMOGLOBIN 33.3 pg (28-32); MEAN CORPUSCULAR HGB CONC 32.4 g/dL (31-35); MEAN CORPUSCULAR VOLUME 102.8 fL (81-99); MONOCYTES # (AUTO) 0.4 (0.2-0.8); MONOCYTES % 9.5 % (4.4-11.3); NEUTROPHILS # (AUTO) 2.8 (2.1-6.9); PLATELET COUNT 100 x10e3/uL (140-360); WHITE BLOOD COUNT 4.21 x10e3/uL (4.8-10.8)
[2024-02-05 06:26] LABS: ANION GAP 12.8 mmol/L (8-16); CALCIUM 8.8 mg/dL (8.4-10.2); CREATININE, SERUM 0.8 mg/dL (0.72-1.25); POTASSIUM 3.8 mmol/L (3.5-5.1)
[2024-02-05] MEDS: OXYBUTYNIN CHLORIDE 5 MG TAB PO SCH (09:03)
[2024-02-05] MEDS: FINASTERIDE 5 MG TAB PO SCH (09:04)
[2024-02-05] MEDS: MUPIROCIN 2% OINT 22 GM TUBE TOP SCH (17:45)
[2024-02-05] MEDS: Vancomycin IV 1 GM in SODIUM CHLORIDE 0.9% 250ML 250 ML IV SCH (18:57)
[2024-02-05] MEDS: SODIUM CHLORIDE 0.9% 250ML 250 ML ONE (21:28)
[2024-02-06] VITALS (8 sets, daily range): BP systolic 112–136; BP diastolic 56–68; PULSE 50–108; RESP 16–18; TEMP 97.1–98; O2SAT 99–100
[2024-02-06] MEDS: MEROPENEM 1 GM in SODIUM CHLORIDE 0.9% 100 ML IV SCH (08:19)
[2024-02-07] VITALS (9 sets, daily range): BP systolic 123–135; BP diastolic 64–81; PULSE 50–62; RESP 17–19; TEMP 97–98.5; O2SAT 97–100
[2024-02-07] MEDS: MEROPENEM 1 GM in SODIUM CHLORIDE 0.9% 100 ML IV SCH (16:09)
[2024-02-08] VITALS (7 sets, daily range): BP systolic 111–155; BP diastolic 56–78; PULSE 54–65; RESP 17–19; TEMP 97.8–98.6; O2SAT 99–100
[2024-02-08 05:32] LABS: BASOPHILS % 0.7 % (0.0-1.0); EOSINOPHILS # (AUTO) 0.1 (0.0-0.4); EOSINOPHILS % 2.9 % (0.0-6.0); HEMATOCRIT 41.4 % (38.2-49.6); HEMOGLOBIN 13.4 g/dL (14.0-18.0); LYMPHOCYTES # (AUTO) 1.2 (1.0-3.2); LYMPHOCYTES % 26.4 % (18.0-39.1); MEAN CORPUSCULAR HEMOGLOBIN 33.3 pg (28-32); MEAN CORPUSCULAR HGB CONC 32.4 g/dL (31-35); MONOCYTES # (AUTO) 0.5 (0.2-0.8); MONOCYTES % 11.2 % (4.4-11.3); NEUTROPHILS # (AUTO) 2.7 (2.1-6.9); NEUTROPHILS % 58.6 % (38.7-80.0); PLATELET COUNT 97 x10e3/uL (140-360); RED BLOOD COUNT 4.02 x10e6/uL (4.3-5.7); RED CELL DISTRIBUTION WIDTH 13.1 % (11.7-14.4); WHITE BLOOD COUNT 4.55 x10e3/uL (4.8-10.8)
[2024-02-08 05:45] LABS: ANION GAP 12.3 mmol/L (8-16); CALCIUM 8.8 mg/dL (8.4-10.2); CREATININE, SERUM 0.81 mg/dL (0.72-1.25); POTASSIUM 4.3 mmol/L (3.5-5.1)
[2024-02-09] VITALS (8 sets, daily range): BP systolic 122–146; BP diastolic 57–91; PULSE 50–61; RESP 16–18; TEMP 97–98.2; O2SAT 100
[2024-02-10] VITALS (7 sets, daily range): BP systolic 128–147; BP diastolic 59–72; PULSE 55–64; RESP 17–20; TEMP 97.5–98.8; O2SAT 95–100
[2024-02-11] VITALS: BP 122/64; PULSE 55; RESP 16; TEMP 97.7; O2SAT 100
[2024-02-11 05:56] VITALS: BP 131/65; PULSE 60; RESP 18; TEMP 97.7; O2SAT 99
== END 2024-02-11 10:03 | disposition home or self-care (01) | DRG 690 ==
LOC: ER 07:09 → ERHOLD 07:21 → MED/SURG2 08:45
PROVIDERS: ADMIT Internal Medicine; ATTEND Internal Medicine
PROC: 02HV33Z Insertion of Infusion Device into Superior Vena Cava, Percutaneous Approach (ICD-10-PCS; principal; 2024-02-04)
DX: N30.91 Cystitis, unspecified with hematuria (principal); R78.81 Bacteremia; Z16.24 Resistance to multiple antibiotics; Z16.12 Extended spectrum beta lactamase (ESBL) resistance; D69.6 Thrombocytopenia, unspecified; C67.9 Malignant neoplasm of bladder, unspecified; D72.819 Decreased white blood cell count, unspecified; I10 Essential (primary) hypertension; E78.5 Hyperlipidemia, unspecified; N40.1 Benign prostatic hyperplasia with lower urinary tract symptoms; N39.498 Other specified urinary incontinence; D64.9 Anemia, unspecified; B96.89 Other specified bacterial agents as the cause of diseases classified elsewhere; Z93.3 Colostomy status; Z85.038 Personal history of other malignant neoplasm of large intestine; Z90.49 Acquired absence of other specified parts of digestive tract; Z87.440 Personal history of urinary (tract) infections
CPT/HCPCS: 36415; 36569; 71045; 74176; 80048; 80053; 80202; 81003; 83605; 85025; 87040; 87071; 87086; 87186; 87205; 94799; 99252; 99284; J2185; J7050